=== PATIENT | male | born 1975 | race Two or more races ===

== ENCOUNTER 2017-06-16 18:26 | Emergency (ER) | payer MEDICAID ==
[~2017-06-16] VITALS: Ht 165.1 cm; Wt 69.0 kg
[~2017-06-16 18:26] MED LIST: IBUP-1636
[2017-06-17] MEDS ORDERED: SODIUM CHLORIDE 0.9% 1,000 ML IV ONE (02:23)
[2017-06-17] MEDS ORDERED: ACETAMINOPHEN 325MG TABLET PO STA (02:23)
[2017-06-17] MEDS ORDERED: KETOROLAC 30MG/ML VIAL IV STA (02:23)
[2017-06-17] MEDS ORDERED: ASPIRIN 325MG EC TABLET PO ONE (02:45)
[2017-06-17 02:53] LABS: BASOPHILS % 0.4 % (0.0-2.0); EOSINOPHILS % 0.8 % (0.0-5.0); HEMATOCRIT. 42.3 % (42.0-52.0); HEMOGLOBIN. 14.7 g/dL (14.0-18.0); LYMPHOCYTES % 30.1 % (20.0-50.0); MEAN CORPUSCULAR VOLUME 89.3 fL (80.0-94.0); MEAN PLATELET VOLUME 9.4 fl (7.4-10.4); MONOCYTES % 9.8 % (2.0-8.0); NEUTROPHILS % 58.9 % (40.0-76.0); PLATELET 133 x1000/uL (130-400); RED BLOOD CELL COUNT 4.74 mill/uL (4.7-6.1); RED CELL DISTRIBUTION WIDTH 12.5 % (11.6-14.6)
[2017-06-17 03:02] LABS: CHLORIDE 101 mEq/L (98-107)
[2017-06-17 03:10] LABS: ETHANOL BLOOD < 10 mg/dL
[2017-06-17 03:41] LABS: *AMPHETAMINES SCREEN URINE NEGATIVE (NEGATIVE); *BARBITURATES SCREEN URINE NEGATIVE (NEGATIVE); *BENZODIAZEPINES SCREEN URINE NEGATIVE (NEGATIVE); *COCAINE SCREEN URINE NEGATIVE (NEGATIVE); CANNABINOID URINE SCREEN NEGATIVE (NEGATIVE); METHADONE URINE SCREEN NEGATIVE (NEGATIVE); OPIATES URINE SCREEN NEGATIVE (NEGATIVE); PHENCYCLIDINE URINE SCREEN NEGATIVE (NEGATIVE)
[2017-06-17 04:35] LABS: KETONES URINE NEGATIVE (NEGATIVE); LEUKOCYTE ESTERASE URINE NEGATIVE (NEGATIVE); NITRITE URINE NEGATIVE (NEGATIVE); OCCULT BLOOD URINE NEGATIVE (NEGATIVE); PROTEIN URINE NEGATIVE (NEGATIVE); SPECIFIC GRAVITY URINE 1.014 (1.005-1.030); UROBILINOGEN URINE 0.2 E.U./dL (0.2-1.0)
[2017-06-17 04:37] LABS: CLARITY URINE CLEAR (CLEAR); COLOR URINE YELLOW (YELLOW)
[2017-06-17 05:53] VITALS: BP 97/63
== END 2017-06-17 05:56 | disposition home or self-care (01) ==
LOC: ER 21:17
DX: J10.1 Influenza due to other identified influenza virus with other respiratory manifestations (principal)
CPT/HCPCS: 36415; 71045; 80053; 80305; 81003; 83605; 83690; 83880; 84484; 85025; 87040; 87804; 93005; 96361; 96374; 99285; G0482; J1885; J7030; Z7610

== ENCOUNTER 2018-08-08 14:53 | Emergency (ER) | payer MEDICAID ==
[~2018-08-08] VITALS: Ht 165.1 cm; Wt 75.0 kg
[2018-08-08] MEDS ORDERED: CYCLOBENZAPRINE 10MG TABLET PO ONE (16:45)
[2018-08-08] MEDS ORDERED: KETOROLAC 30MG/ML VIAL IM ONE (16:45)
[2018-08-08 18:17] VITALS: BP 126/84
== END 2018-08-08 18:20 | disposition home or self-care (01) ==
LOC: ER 14:53
DX: M54.5 Low back pain (principal)
CPT/HCPCS: 96372; 99283; J1885